=== PATIENT | female | born 1990 | race Caucasian/White ===

== ENCOUNTER 2022-12-08 17:02 | Inpatient (IN) | payer OTHER, SELFPAY ==
[2022-12-08 17:06] VITALS: BP 138/91; PULSE 121; RESP 18; TEMP 37.9; O2SAT 99; BMI 40.6
--- NOTE | 2022-12-08 17:17 | ED.SKABFB ---
HPI - Skin/Abscess/Foreign Bdy General Time Seen by Provider: 17:17 Date Seen: 12/08/22 Chief complaint: Skin/Abscess/Foreign Body Stated complaint: Rash w Fever Time Seen by Provider: 12/08/22 17:17 Source: patient, RN notes reviewed and old records reviewed Mode of arrival: ambulatory Limitations: no limitations History of Present Illness HPI narrative: Patient is a very pleasant 32-year-old female with past history of MRSA and recent treatment for cellulitis with doxycycline and Keflex who comes to the emergency room for worsening symptoms. Patient noted the onset of feeling ill with body aches and chills on WednesdayDecember 06. She thought she was coming down with a virus. That evening she noticed some redness on her lower extremity. Mainly in the anterior and medial calf area. She had noticed that she had an opening on her right lateral heel from a skin crack. It was initially tender. She was seen in the emergency room at which time she received an ultrasound that was negative for DVT, received dose of Rocephin and was placed on oral doxycycline and Keflex. She has not noted any improvement. In fact she has now been experiencing fevers up to 102? in association with continued chills. She now notes that the redness has extended onto her right thigh. She is nauseated without any known vomiting. She has not had any diarrhea. She denies difficulty breathing. Related Data Home Medications Medication Instructions Recorded Confirmed Ozempic 12/08/22 hydrochlorathiazide 12/08/22 Allergies Allergy/AdvReac Type Severity Reaction Status Date / Time Sulfa (Sulfonamide Allergy Intermediate Rash Verified 12/08/22 17:10 Antibiotics) Review of Systems Status of ROS: Reports: 10 or more systems reviewed and unremarkable except as noted in History and below Const: Reports: fever, chills and fatigue Eyes: Denies: change in vision ENMT: Denies: throat pain, neck pain or difficulty swallowing Cardio: Denies: chest pain or shortness of breath with exertion Resp: Denies: shortness of breath or cough GI: Reports: nausea; Denies: abdominal pain, vomiting, diarrhea or difficulty swallowing : Denies: painful urination or urinary frequency Musculo: Denies: back pain or neck pain Integ/Breast: Reports: rash, redness and skin pain Neuro: Denies: headache, numbness in extremities or weakness in extremities Endo: Reports: fatigue; Denies: excessive urination PFSH PFS Social History Smoking Status: Never smoker Do you use any of these nicotine containing products: None How often do you have a drink containing alcohol: 2-3 times a week How many standard drinks containing alcohol do you have on a typical day: 1 or 2 AUDIT-C Alcohol total score: 3 Non-prescribed substance use: denies use service: No Exam Narrative: Exam Narrative: Nursing notes reviewed. Patient is alert and oriented. She is nontoxic in appearance. Eyes are clear. Mucous membranes are moist. Neck is supple without lymphadenopathy. Heart with a rapid rate but normal rhythm. Lungs are clear bilaterally. Abdomen soft nontender. Examination of the lower extremity shows multiple areas of erythema macular with warmth to the touch. This is on her entire leg extending into her groin. The groin is tender but I do not palpate extensive lymphadenopathy. The lateral aspect of her right heel she has a 1 cm crack through the callused tissue. This is not tender to the touch nor is there any drainage here. Negative Homans sign. Const: Vital Signs, click to edit/add: Vital Signs - 24 hr 12/08/22 17:06 Temperature 100.2 F H Pulse Rate [Pulse Oximeter] 121 H Respiratory Rate 18 Blood Pressure [Ri ght Upper Arm] 138/91 H Pulse Oximetry 99 Oxygen Delivery Me thod Room Air Documenting provider has reviewed patient's vital signs: yes Course Course Hospital Course: Patient will have IV placed is clearly this is cellulitic extension. Will start vancomycin and Zosyn IV blood cultures will be accomplished as well as blood draw to include CBC, lactate, basic, CRP. Reevaluation(s) Reevaluation #1: Discussed with patient that her lactate and white count are normal but she has an elevation of CRP. She is requesting pain medication and nausea medicine. She has not had any vomiting. Will give her Toradol 15 mg and Zofran 4 mg via IV. Vital Signs Vital signs: Initial Vital Signs Temperature 100.2 F H 12/08/22 17:06 Temperature Source Temporal Artery Scan 12/08/22 17:06 Pulse Rate 121 H 12/08/22 17:06 Respiratory Rate 18 12/08/22 17:06 Blood Pressure 138/91 H 12/08/22 17:06 Blood Pressure Mean 106 12/08/22 17:06 Blood Pressure Position Supine 12/08/22 17:06 Pulse Oximetry 99 12/08/22 17:06 Oxygen Delivery Method 12/08/22 17:06 Vital Signs Temperature 100.2 F H 12/08/22 17:06 Pulse Rate 121 H 12/08/22 17:06 Respiratory Rate 18 12/08/22 17:06 Blood Pressure 138/91 H 12/08/22 17:06 Pulse Oximetry 99 12/08/22 17:06 Oxygen Delivery Method 12/08/22 17:06 Temperature 100.2 F H 12/08/22 17:06 Pulse Rate 121 H 12/08/22 17:06 Respiratory Rate 18 12/08/22 17:06 Blood Pressure 138/91 H 12/08/22 17:06 Pulse Oximetry 99 12/08/22 17:06 Oxygen Delivery Method 12/08/22 17:06 MDM - Skin/Abscess/Foreign Bdy MDM Narrative Medical decision making narrative: 1. Cellulitis-failure of outpatient antibiotics with extension infection into right leg and groin. Zosyn 3.375 g IV, vancomycin 2 g IV given in the ED. Did recheck lower extremity Doppler to ensure no evidence of underlying DVT and this was negative. White count and lactate normal. No evidence of sepsis at this time. 2. Disposition -admit under the care of Dr. Mccallum. Medical Records Attestation: I reviewed the patient's medical records. Lab Data Attestation: I reviewed the patient's lab results. Labs: Lab Results 12/08/22 12/08/22 12/08/22 Range/Units 17:40 17:40 17:40 WBC 8.71 (4.50-11.00) K/uL RBC 3.93 L (4.00-5.20) m/uL Hgb 12.4 (12.0-16.0) gm/dL Hct 36.1 (33.0-51.0) % MCV 92 (80-100) fL MCH 32 (26-34) pg MCHC 34 (32-36) gm/dL RDW Coeff of Duyen 12.9 (11.5-15.5) % Plt Count 175 (140-440) K/uL Neut % (Auto) 76.4 H (42.0-72.0) % Lymph % (Auto) 15.7 L (20-44) % [place] % (Auto) 7.0 (0.0-11.0) % Eos % (Auto) 0.5 (0.0-7.0) % Baso % (Auto) 0.2 (0.0-3.0) % Neut # (Auto) 6.70 (1.7-7.0) K/uL Lymph # (Auto) 1.40 (0.90-2.90) K/uL [place] # (Auto) 0.60 (0.00-0.90) K/UL Eos # (Auto) 0.04 (0.00-0.50) K/uL Baso # (Auto) 0.02 (0.00-0.30) K/uL Sodium 136 (135-149) mmol/L Potassium 3.5 L (3.6-5.1) mmol/L Chloride 109 (96-114) mmol/L Carbon Dioxide 20 (20-32) mmol/L BUN 8 (5-24) mg/dL Creatinine 0.7 (0.5-1.5) mg/dL Estimated Creat Clear 87.06 Estimated GFR 118 ml/min Glucose 94 (60-115) mg/dL Lactate 0.6 (0.5-1.9) mmol/L Calcium 8.3 L (8.4-10.6) mg/dL C-Reactive Protein 20.0 H (0.5-1.0) mg/dL Imaging Data Venous US: Attestation: I have reviewed the pertinent imaging results. Radiologist's impression: Ultrasound of the venous drainage of the right lower extremity shows no evidence of deep venous thrombosis. There is normal antegrade flow from the posterior tibial and popliteal veins superiorly through the common femoral vein. There is normal augmentation and compressibility of these veins. The left common femoral vein is widely patent. IMPRESSION: No evidence of right lower extremity deep venous thrombosis. Discharge Plan Discharge Prescriptions: No Action Ozempic hydrochlorathiazide
--- NOTE | 2022-12-08 17:26 | CRLHL7_ITS ---
For Patients: As a result of the Century Cures Act, medical imaging exams and procedure reports are released immediately into your electronic medical record. You may view this report before your referring provider. If you have questions, please contact your health care provider. INDICATION: Right lower extremity pain and swelling COMPARISON: None available. FINDINGS: Ultrasound of the venous drainage of the right lower extremity shows no evidence of deep venous thrombosis. There is normal antegrade flow from the posterior tibial and popliteal veins superiorly through the common femoral vein. There is normal augmentation and compressibility of these veins. The left common femoral vein is widely patent. IMPRESSION: No evidence of right lower extremity deep venous thrombosis. Dictated by Fredrick Weir MD @ 12/08/2022 6:38:46 PM (Electronically Signed)
[2022-12-08] MEDS: 0.9 % SODIUM CHLORIDE 1000 ml 1,000 ML IV ×2 (17:45→22:41)
[2022-12-08] MEDS: PIPERACILLIN/TAZOBACTAM 3.375 GM in 0.9 % SODIUM CHLORIDE Mini-bag 100 ML IVPB ×2 (17:46→23:56)
[2022-12-08 18:00] LABS: Lactate* 0.6 mmol/L (0.5-1.9)
[2022-12-08 18:02] LABS: Basophils Absolute Auto 0.02 K/uL (0.00-0.30); Basophils Percent Auto 0.2 % (0.0-3.0); Eosinophils Absolute Auto 0.04 K/uL (0.00-0.50); Eosinophils Percent Auto 0.5 % (0.0-7.0); Hematocrit 36.1 % (33.0-51.0); Hemoglobin* 12.4 gm/dL (12.0-16.0); Immature Granulocytes Abs Auto 0.02 K/uL (0.00-0.30); Immature Granulocytes Pct Auto 0.2 %; Lymphocytes Percent Auto 15.7 % (20-44); Mean Corpuscular HGB Conc 34 gm/dL (32-36); Mean Corpuscular Hemoglobin 32 pg (26-34); Mean Corpuscular Volume 92 fL (80-100); Neutrophils Percent Auto 76.4 % (42.0-72.0); Platelet Count* 175 K/uL (140-440); RDW Coefficient of Variation % 12.9 % (11.5-15.5); Red Blood Count 3.93 m/uL (4.00-5.20); White Blood Count* 8.71 K/uL (4.50-11.00)
[2022-12-08 18:05] LABS: Slide Review Reflex No
[2022-12-08 18:17] LABS: Chloride* 109 mmol/L (96-114); Sodium* 136 mmol/L (135-149)
[2022-12-08 18:18] LABS: Potassium* 3.5 mmol/L (3.6-5.1)
[2022-12-08 18:20] LABS: Creatinine* 0.7 mg/dL (0.5-1.5); Est. Creatinine Clearance* 87.06; Estimated Glomerular Filt Rate 118 ml/min
[2022-12-08 18:21] LABS: Blood Urea Nitrogen* 8 mg/dL (5-24); Calcium* 8.3 mg/dL (8.4-10.6); Carbon Dioxide* 20 mmol/L (20-32); Glucose* 94 mg/dL (60-115)
[2022-12-08] MEDS: KETOROLAC 15 MG/ML inj IVP (19:07)
[2022-12-08] MEDS: ONDANSETRON 2 MG/ML inj 4 MG IVP (19:07)
[2022-12-08 19:09] VITALS: BP 124/77; TEMP 37.4
--- NOTE | 2022-12-08 19:49 | W.PC.EDHO ---
Primary Language: Preferred Language: Orientation Status: [x] Alert & Oriented [] Slight Confusion [] Known Dx Dementia Transfers By: [x] Assist of 1 [] Assist of 2 [] Lift Active Medications Discontinued Medications Generic Name Dose Route Start Last Admin Trade Name James PRN Reason Stop Dose Admin Sodium Chloride 1,000 mls @ 1,000 mls/hr 12/08/22 17:24 12/08/22 19:21 0.9 % Sodium Chloride 1000 Ml IV 12/08/22 18:23 Infused .Q1H DAISY Infusion Piperacillin Sod/Tazobactam 100 mls @ 200 mls/hr 12/08/22 17:23 12/08/22 18:35 Sod 3.375 gm/ Sodium Chloride IVPB 12/08/22 17:24 Infused ONCE ONE Infusion Vancomycin HCl 2,000 mg/ 520 mls @ 260 mls/hr 12/08/22 17:23 12/08/22 18:34 Sodium Chloride IVPB 12/08/22 17:24 260 mls/hr ONCE ONE Administration Protocol Ketorolac Tromethamine 15 mg 12/08/22 18:52 12/08/22 19:07 Ketorolac 15 Mg/Ml Inj IVP 12/08/22 18:53 15 mg ONCE ONE Administration Ondansetron HCl 4 mg 12/08/22 18:52 12/08/22 19:07 Ondansetron 2 Mg/Ml Inj IVP 12/08/22 18:53 4 mg ONCE ONE Administration Description of Symptoms ED Triage Present Problem wednesday night went to [facility] with malaise, weak, Description pain R groin down leg, diagnosed with cellulitis. had rocephin iv, dc'd on doxycycline and keflex. today redness on leg increasing and fever of 102. Female History Hx Last Menstrual Period 2.5 weeks ago Patient No Pain Pain Description [Right Leg] Burning Pain Intensity [Right Leg] 8 Pain Intensity [Right Leg] 7 Pain Intensity 5 Pain Intensity 6 Pain Intensity 8 Pain Scale Used [Right Leg] Numeric (1 - 10) Pain Scale Used Numeric (1 - 10) Pain Scale Used Numeric (1 - 10) Pain Scale Used Numeric (1 - 10) IV Insertion/Site Date of IV Line Insertion [ 12/08/22 Left Antecubital] Oxygen Administration Pulse Oximetry 99 Oxygen Delivery Method Room Air
[2022-12-08 20:08] LABS: PCR FLU A Negative PCR FLU A (Negative); PCR FLU B Negative PCR FLU B (Negative); PCR RSV Negative PCR RSV (Negative)
[2022-12-08 20:39] LABS: SARS PCR* Negative SARS-CoV-2 (Negative)
--- NOTE | 2022-12-08 21:00 | PM.IMHP1 ---
Hospitalist- H&P: HPI History of Present Illness Date Seen: 12/08/22 Chief complaint: Rash w Fever Narrative: Stephanie Gagnon is a 32 year old female who presented to the emergency room this evening for worsening right lower extremity cellulitis. She notes feeling flu-like on Wednesday (2 days ago), followed by a rash on R choudhury. She was seen at [facility], treated with IV Rocephin, sent home on oral Doxycycline and Keflex. Symptoms continued to worsen, and in the past 24 hours, erythema has continued to spread caudally. Her right lower extremity has also felt more uncomfortable and tight. She has also had fevers at home (up to 102) with associated chills. She has had associated nausea, no vomiting or diarrhea. No sick contacts at home. No recent travel. ER course and findings: - white blood count 8.7, lactate within normal limits, CRP 20 - no abnormalities on right lower extremity ultrasound - temperature of 100.2, tachycardic on arrival - given IV vancomycin and Zosyn Given patient's worsening illness and failure of outpatient antibiotics, she is admitted to the hospital for further management. Stephanie is seen on the floor, she provides her own medical history. Past medical history updated below; patient is generally healthy. PCP is Dr. Rubina Meneses at [facility] clinic in [place]. 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 Lies in [place] with and three children (ages 1, 4, and 7). Review of Systems Narrative: - no recent travel - LMP late October, negative UPT 2 days ago - no dysuria, no abdominal pain PFSH PFSH Medical History (Updated 12/08/22 @ 21:58 by Bertha Mccallum MD) Essential hypertension Surgical History (Updated 12/08/22 @ 21:45 by Bertha Mccallum MD) History of Family History (Updated 12/08/22 @ 21:45 by Bertha Mccallum MD) Father Diabetes Leukemia Social History (Updated 12/08/22 @ 21:44 by Bertha Mccallum MD) Narrative: Lives with and 3 children in [place]. 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 Nonsmoker, social wine. Nabil would be medical decision maker if needed. Full code. Highest level of school completed/degree received: Bachelor's degree Smoking Status: Never smoker Do you use any of these nicotine containing products: None Second hand tobacco smoke exposure: No How often do you have a drink containing alcohol: 2-3 times a week Alcohol type: wine How many standard drinks containing alcohol do you have on a typical day: 1 or 2 AUDIT-C Alcohol total score: 3 Non-prescribed substance use: denies use Caffeine: Yes service: No Meds Home Medications and Allergies Home Medications Medication Instructions Recorded Confirmed Type hydrochlorothiazide 25 mg tablet 25 mg PO DAILY 12/08/22 12/08/22 History semaglutide 0.25 mg or 0.5 mg (2 0.5 mg subcut QWEEK 12/08/22 12/08/22 History mg/1.5 mL) subcutaneous pen injector (Ozempic) Allergies Allergy/AdvReac Type Severity Reaction Status Date / Time Sulfa (Sulfonamide Allergy Intermediate Rash Verified 12/08/22 17:10 Antibiotics) Exam Narrative: Exam Narrative: GEN: Alert and oriented, sitting comfortably in bed and answering questions appropriately HEENT: EOMIs bilaterally, no scleral icterus CV: RRR (heart rate in the 90s during my exam), No concerning murmurs, rubs, or gallops R: LCTA bilaterally without concerning wheezing, air movement adequate Abdomen: Soft, nontender, no masses Back: Normal contours, no concerning skin lesions Ext: Normal pulses at dorsalis pedis sites bilaterally. Nonpitting edema of right lower extremity, areas of erythema are warm to the touch Skin: Streaking, blanchable erythema noted on right lower extremity, both anteriorly and posteriorly, tracking caudally. No vesicular lesions. No obvious source of cellulitis; small crack in right heel that does not have surrounding erythema, there is also no induration or fluctuance of this area and no tenderness to palpation Neuro: No focal deficits, no resting tremor Psych: Appropriate Const: Vital Signs, click to edit/add: Vital Signs - 24 hr 12/08/22 17:06 12/08/22 19:09 Temperature 100.2 F H 99.3 F Pulse Rate [Pulse Oximeter] 121 H Respiratory Rate 18 Blood Pressure [Ri ght Upper Arm] 138/91 H 124/77 Pulse Oximetry 99 Oxygen Delivery Me thod Room Air Hospitalist - H&P: Result Labs Labs: Short CBC 12/08/22 Range/Units 17:40 WBC 8.71 (4.50-11.00) K/uL Hgb 12.4 (12.0-16.0) gm/dL Hct 36.1 (33.0-51.0) % Plt Count 175 (140-440) K/uL BMP 12/08/22 17:40 Sodium 136 Potassium 3.5 L Chloride 109 Carbon Dioxide 20 BUN 8 Creatinine 0.7 Glucose 94 Calcium 8.3 L Assessment and Plan Assessment and plan (1) Cellulitis: Problem comment: - RLE; failed outpatient management with doxycycline and Keflex - presented with fever and worsening symptoms - Zosyn and vancomycin initiated in ED (12/08), will continue these - negative ultrasound for DVT on 12/08 - pain management with Toradol, oxycodone, Tylenol - fever management with Tylenol Status: Acute (2) Essential hypertension: Problem comment: - on hydrochlorothiazide as an outpatient - holding on admission given severe illness Status: Acute Plan - per above - follow inflammatory markers - full code
[2022-12-08 21:17] VITALS: BP 109/78; PULSE 102; RESP 16; RESP 18; TEMP 37.8; O2SAT 97; O2SAT 99; BMI 42.3
[2022-12-08] MEDS: ACETAMINOPHEN 500 MG TABLET 1000 MG PO (22:41)
[2022-12-08 23:00] VITALS: BP 137/90; PULSE 102; PULSE 107; RESP 18; TEMP 37.3; O2SAT 99
[2022-12-09] VITALS (8 sets, daily range): BP systolic 111–147; BP diastolic 78–101; PULSE 80–98; RESP 16–18; TEMP 36.8–37.2; O2SAT 97–100
[2022-12-09] MEDS: PIPERACILLIN/TAZOBACTAM 3.375 GM in 0.9 % SODIUM CHLORIDE Mini-bag 100 ML IVPB ×4 (05:30→23:30)
[2022-12-09] MEDS: OXYCODONE 5 MG TABLET PO ×4 (05:33→20:37)
--- NOTE | 2022-12-09 06:10 | PC.NURSE ---
VSS on RA. Patient is alert and oriented x4, able to make needs known to staff. Independent, pain managed with oxycodone 5 mg. Iv antibiotics infused x2 this shift.
[2022-12-09 07:09] LABS: Lactate* 0.5 mmol/L (0.5-1.9)
[2022-12-09 07:50] LABS: Basophils Absolute Auto 0.02 K/uL (0.00-0.30); Basophils Percent Auto 0.3 % (0.0-3.0); Eosinophils Absolute Auto 0.05 K/uL (0.00-0.50); Eosinophils Percent Auto 0.7 % (0.0-7.0); Hematocrit 34.7 % (33.0-51.0); Hemoglobin* 11.6 gm/dL (12.0-16.0); Immature Granulocytes Abs Auto 0.02 K/uL (0.00-0.30); Immature Granulocytes Pct Auto 0.3 %; Lymphocytes Percent Auto 13.7 % (20-44); Mean Corpuscular HGB Conc 33 gm/dL (32-36); Mean Corpuscular Hemoglobin 31 pg (26-34); Mean Corpuscular Volume 94 fL (80-100); Monocytes Percent Auto 10.7 % (0.0-11.0); Neutrophils Percent Auto 74.3 % (42.0-72.0); Platelet Count* 151 K/uL (140-440); RDW Coefficient of Variation % 13.1 % (11.5-15.5); Red Blood Count 3.69 m/uL (4.00-5.20); White Blood Count* 6.85 K/uL (4.50-11.00)
[2022-12-09 07:52] LABS: Slide Review Reflex No
[2022-12-09 07:55] LABS: Chloride* 112 mmol/L (96-114); Potassium* 3.6 mmol/L (3.6-5.1); Sodium* 139 mmol/L (135-149)
[2022-12-09 07:58] LABS: Creatinine* 0.8 mg/dL (0.5-1.5); Est. Creatinine Clearance* 76.18; Estimated Glomerular Filt Rate 100 ml/min
[2022-12-09 07:59] LABS: Blood Urea Nitrogen* 8 mg/dL (5-24); Calcium* 7.9 mg/dL (8.4-10.6); Carbon Dioxide* 23 mmol/L (20-32); Glucose* 99 mg/dL (60-115)
[2022-12-09 08:14] LABS: C Reactive Protein* 18.8 mg/dL (0.5-1.0)
[2022-12-09] MEDS: SODIUM CHLORIDE 0.9 % (FLUSH) 10 ML SYRINGE 5 ML IVF ×2 (09:51→20:22)
--- NOTE | 2022-12-09 09:51 | CRLHL7_ITS ---
For Patients: As a result of the Century Cures Act, medical imaging exams and procedure reports are released immediately into your electronic medical record. You may view this report before your referring provider. If you have questions, please contact your health care provider. INDICATION: Calf cellulitis. Assess for abscess. TECHNIQUE: 100 mL Isovue-370 IV contrast. FINDINGS: Moderately dense edema attenuation in the subcutaneous adipose anterior and medial mid to distal calf. No organized fluid. No muscle inflammation or edema. No cortical nodular abnormality of tibia or fibula. No soft tissue air. Some skin thickening in the anterior medial mid to distal calf. IMPRESSION: No abscess or deep soft tissue infection. Cellulitis. Please note that all CT scans at this facility use dose modulation, iterative reconstruction, and/or weight-based dosing when appropriate to reduce radiation dose to as low as reasonably achievable. Dictated by Ritchie Benito MD @ 12/09/2022 11:39:33 AM (Electronically Signed)
--- NOTE | 2022-12-09 09:54 | PM.IMPN1 ---
Progress Note: A&P Assessment and plan (1) Cellulitis: Problem details: - RLE; failed outpatient management with doxycycline and Keflex (presented with fever, tachycardia, hypotension) - Zosyn and vancomycin initiated in ED (12/08), will continue these - pain management with Toradol, oxycodone, Tylenol - negative ultrasound for DVT on 12/08 - CT obtained 12/09 with formal radiology read below FINDINGS: Moderately dense edema attenuation in the subcutaneous adipose anterior and medial mid to distal calf. No organized fluid. No muscle inflammation or edema. No cortical nodular abnormality of tibia or fibula. No soft tissue air. Some skin thickening in the anterior medial mid to distal calf. IMPRESSION: No abscess or deep soft tissue infection. Cellulitis Status: Acute (2) Essential hypertension: Problem details: - on hydrochlorothiazide as an outpatient, holding at this time given hypotension on admission Status: Acute (3) Sepsis: Problem details: - tachycardia, hypotension, fever in the setting of cellulitis; all improved on hospital day #1 - blood cultures currently NGTD Status: Acute Plan - continue antibiotics and pain management - start ambulating today - home with and children when medically stable Subjective Date Seen: 12/09/22 Interval history: BP improved overnight after IVFs. Tmax 100.2 last night. VS normalized this morning. Continues to have pain, notes it is worse than on admission with some induration of posterior RLE. No CP, no abdominal pain, no dyspnea. Mild headache this morning (queries lack of caffeine as source). Exam Narrative: Exam Narrative: GEN: Alert and oriented, sitting comfortably in bed and answering questions appropriately HEENT: EOMIs bilaterally, no scleral icterus CV: RRR, No concerning murmurs, rubs, or gallops R: LCTA bilaterally without concerning wheezing, air movement adequate Ext: Nonpitting edema of right lower extremity. Skin over posterior rate ankle is now indurated, not fluctuant. + ttp Skin: Serpiginous erythema persists over right lower extremity, erythema has improved caudally Neuro: Normal peripheral pulses and capillary refill bilateral lower extremities Psych: Appropriate Const: Vital Signs, click to edit/add: Vital Signs - 24 hr 12/08/22 17:06 12/08/22 19:09 12/08/22 21:17 Temperature 100.2 F H 99.3 F 100.1 F H Pulse Rate [Left P ulse Oximeter] 102 H Pulse Rate [Pulse Oximeter] 121 H Respiratory Rate 18 16 Blood Pressure [Ri ght Arm] 109/78 Blood Pressure [Ri ght Upper Arm] 138/91 H 124/77 Pulse Oximetry 99 97 Oxygen Delivery Tn thod Room Air Room Air 12/08/22 21:17 12/08/22 23:00 12/08/22 23:00 Temperature Pulse Rate [Left P ulse Oximeter] 102 H Pulse Rate [Pulse Oximeter] Respiratory Rate 18 18 Blood Pressure [Ri ght Arm] Blood Pressure [Ri ght Upper Arm] Pulse Oximetry 99 99 Oxygen Delivery Tn thod Room Air Room Air 12/08/22 23:00 12/09/22 03:00 12/09/22 07:50 Temperature 99.2 F 98.4 F Pulse Rate [Left P ulse Oximeter] 107 H 94 91 Pulse Rate [Pulse Oximeter] Respiratory Rate 18 18 16 Blood Pressure [Ri ght Arm] 137/90 H 111/78 Blood Pressure [Ri ght Upper Arm] Pulse Oximetry 99 98 Oxygen Delivery Tn thod Room Air Room Air 12/09/22 07:00 12/09/22 07:00 Temperature 98.9 F Pulse Rate [Left P ulse Oximeter] 91 Pulse Rate [Pulse Oximeter] Respiratory Rate 18 16 Blood Pressure [Ri ght Arm] 134/89 Blood Pressure [Ri ght Upper Arm] Pulse Oximetry 97 97 Oxygen Delivery Tn thod Room Air Room Air Labs Labs: Laboratory Results - last 24 hr 12/08/22 12/08/22 12/08/22 17:40 17:40 17:40 WBC 8.71 RBC 3.93 L Hgb 12.4 Hct 36.1 MCV 92 MCH 32 MCHC 34 RDW Coeff of Duyen 12.9 Plt Count 175 Neut % (Auto) 76.4 H Lymph % (Auto) 15.[address] [place] % (Auto) 7.0 Eos % (Auto) 0.5 Baso % (Auto) 0.2 Neut # (Auto) 6.70 Lymph # (Auto) 1.40 [place] # (Auto) 0.60 Eos # (Auto) 0.04 Baso # (Auto) 0.02 Sodium 136 Potassium 3.5 L Chloride 109 Carbon Dioxide 20 BUN 8 Creatinine 0.7 Estimated Creat Clear 87.06 Estimated GFR 118 Glucose 94 Lactate 0.6 Calcium 8.3 L C-Reactive Protein 20.0 H SARS-CoV-2 (PCR) Influenza Type A (PCR) Influenza Type B (PCR) RSV (PCR) 12/08/22 12/09/22 12/09/22 19:00 06:49 06:49 WBC 6.85 RBC 3.69 L Hgb 11.6 L Hct 34.7 MCV 94 MCH 31 MCHC 33 RDW Coeff of Duyen 13.1 Plt Count 151 Neut % (Auto) 74.3 H Lymph % (Auto) 13.[address] [place] % (Auto) 10.7 Eos % (Auto) 0.7 Baso % (Auto) 0.3 Neut # (Auto) 5.10 Lymph # (Auto) 0.90 [place] # (Auto) 0.70 Eos # (Auto) 0.05 Baso # (Auto) 0.02 Sodium 139 Potassium 3.6 Chloride 112 Carbon Dioxide 23 BUN 8 Creatinine 0.8 Estimated Creat Clear 76.18 Estimated GFR 100 Glucose 99 Lactate Calcium 7.9 L C-Reactive Protein 18.8 H SARS-CoV-2 (PCR) Negative SARS-CoV-2 Influenza Type A (PCR) Negative PCR FLU A Influenza Type B (PCR) Negative PCR FLU B RSV (PCR) Negative PCR RSV 12/09/22 06:49 WBC RBC Hgb Hct MCV MCH MCHC RDW Coeff of Duyen Plt Count Neut % (Auto) Lymph % (Auto) [place] % (Auto) Eos % (Auto) Baso % (Auto) Neut # (Auto) Lymph # (Auto) [place] # (Auto) Eos # (Auto) Baso # (Auto) Sodium Potassium Chloride Carbon Dioxide BUN Creatinine Estimated Creat Clear Estimated GFR Glucose Lactate 0.5 Calcium C-Reactive Protein SARS-CoV-2 (PCR) Influenza Type A (PCR) Influenza Type B (PCR) RSV (PCR)
[2022-12-09 10:46] LABS: HCG Qualitative* Negative (Negative)
[2022-12-09] MEDS: KETOROLAC 30 MG/ML inj 15 MG IVP (11:40)
--- NOTE | 2022-12-09 14:46 | PC.NURSE ---
End of shift. Patient is alert and oriented x4, able to make needs known to staff. Independent, pain managed with oxycodone 5 mg. Iv antibiotics infused x2 this shift.
--- NOTE | 2022-12-09 14:47 | PC.NURSE ---
End of shift. Pt is alert and oriented x4, pain in the right lower leg. 0-7/10. she is getting po and IV pain meds./ she is eating, drinking and voiding with no problems. she is up ab delmis. she had a CT today. she had a shower today. she is using call light. Iv antibiotics given.
[2022-12-09] MEDS: ACETAMINOPHEN 500 MG TABLET 1000 MG PO (15:19)
--- NOTE | 2022-12-09 19:34 | PC.NURSE ---
Shift [id number]- Patient is pleasant and cooperative. Requests pain medication, receives and she states relief. Redness/pinkness is well receded from outline, though area on posterior medial lower leg are blistered. She is up ad delmis.
[2022-12-09] MEDS: ENOXAPARIN 40 MG/0.4 ML INJ SUBCUT (20:37)
[2022-12-09] MEDS: FLUCONAZOLE 100 MG TABLET 200 MG PO (21:40)
[2022-12-09] MEDS: hydrOXYzine pamoate 25 MG CAPSULE PO (21:40)
[2022-12-10] VITALS (7 sets, daily range): BP systolic 128–137; BP diastolic 77–92; PULSE 91–103; RESP 16–18; TEMP 36.9–37.5; O2SAT 96–98
[2022-12-10] MEDS: OXYCODONE 5 MG TABLET PO ×7 (00:36→22:48)
[2022-12-10] MEDS: 0.9 % SODIUM CHLORIDE 250 ml IV ×2 (00:37→19:42)
[2022-12-10] MEDS: PIPERACILLIN/TAZOBACTAM 3.375 GM in 0.9 % SODIUM CHLORIDE Mini-bag 100 ML IVPB ×4 (05:07→22:42)
--- NOTE | 2022-12-10 05:50 | PC.NURSE ---
[id number]: Patient pleasant and cooperative with cares. PRN Oxycodone administered for pain relief. Independent in room. Patient noted increased redness and pain on R. upper thigh. aware. Mix Chemist outlined new area. Reddened area on R. calf within the previously drawn lines. Denies N/V. Afebrile.
[2022-12-10 06:24] LABS: Lactate* 0.5 mmol/L (0.5-1.9)
[2022-12-10 06:27] LABS: Basophils Absolute Auto 0.01 K/uL (0.00-0.30); Basophils Percent Auto 0.2 % (0.0-3.0); Eosinophils Absolute Auto 0.16 K/uL (0.00-0.50); Eosinophils Percent Auto 2.6 % (0.0-7.0); Hematocrit 33.3 % (33.0-51.0); Hemoglobin* 11.2 gm/dL (12.0-16.0); Immature Granulocytes Abs Auto 0.02 K/uL (0.00-0.30); Immature Granulocytes Pct Auto 0.3 %; Lymphocytes Absolute Auto 1.49 K/uL (0.90-2.90); Lymphocytes Percent Auto 24.3 % (20-44); Mean Corpuscular HGB Conc 34 gm/dL (32-36); Mean Corpuscular Hemoglobin 32 pg (26-34); Mean Corpuscular Volume 94 fL (80-100); Monocytes Percent Auto 10.6 % (0.0-11.0); Neutrophils Absolute Auto 3.81 K/uL (1.7-7.0); Platelet Count* 179 K/uL (140-440); RDW Coefficient of Variation % 13.3 % (11.5-15.5); Red Blood Count 3.53 m/uL (4.00-5.20); White Blood Count* 6.14 K/uL (4.50-11.00)
[2022-12-10 06:35] LABS: Slide Review Reflex No
[2022-12-10 06:47] LABS: Albumin* 3.1 g/dL (3.3-5.0); Chloride* 110 mmol/L (96-114)
[2022-12-10 06:48] LABS: Potassium* 3.7 mmol/L (3.6-5.1); Sodium* 138 mmol/L (135-149)
[2022-12-10 06:50] LABS: Creatinine* 0.9 mg/dL (0.5-1.5); Est. Creatinine Clearance* 67.72; Estimated Glomerular Filt Rate 87 ml/min
[2022-12-10 06:51] LABS: Alanine Aminotransferase* 15 U/L (4-35); Alkaline Phosphatase* 53 U/L (40-150); Aspartate Amino Transferase* 18 U/L (12-35); Bilirubin Total* 0.4 mg/dL (0.1-1.5); Blood Urea Nitrogen* 9 mg/dL (5-24); Carbon Dioxide* 25 mmol/L (20-32); Glucose* 94 mg/dL (60-115); Total Protein* 6.1 g/dL (6.0-8.3)
[2022-12-10 07:12] LABS: C Reactive Protein* 17.1 mg/dL (0.5-1.0)
[2022-12-10] MEDS: SODIUM CHLORIDE 0.9 % (FLUSH) 10 ML SYRINGE 5 ML IVF ×2 (11:05→19:43)
--- NOTE | 2022-12-10 14:28 | PC.NURSE ---
End of shift. ? Pt is alert and oriented x4,?she has been very pleasant. pain in the right lower leg.? 0-510.? she is getting po pain meds. ? she is eating, drinking and voiding with no problems. ? she is up ab delmis and goijg to the [place] on her own, she was able to visit with her family today. SL is patent. ? she is using call light.? Iv antibiotics given. ?redness is improved.
--- NOTE | 2022-12-10 15:18 | P.IMPN_ITS ---
Progress Note: A&P Assessment and plan (1) Cellulitis: Problem details: - RLE; failed outpatient management with doxycycline and Keflex (presented with fever, tachycardia, hypotension) - Zosyn and vancomycin initiated in ED (12/08), will continue these - pain management with Toradol, oxycodone, Tylenol - negative ultrasound for DVT on 12/08 - CT obtained 12/09 with formal radiology read below FINDINGS: Moderately dense edema attenuation in the subcutaneous adipose anterior and medial mid to distal calf. No organized fluid. No muscle inflammation or edema. No cortical nodular abnormality of tibia or fibula. No soft tissue air. Some skin thickening in the anterior medial mid to distal calf. IMPRESSION: No abscess or deep soft tissue infection. Cellulitis - apply Vanicream to the skin of the right lower extremity and then cover with appropriate Tubigrip single layer - she tolerates this well. Recommended that when she is not ambulating that she keep the right lower extremity elevated. Status: Acute (2) Essential hypertension: Problem details: - on hydrochlorothiazide as an outpatient, holding at this time given hypotension on admission Status: Acute (3) Sepsis: Problem details: - tachycardia, hypotension, fever in the setting of cellulitis; all improved on hospital day #1 - blood cultures currently NGTD Status: Acute Plan 1. Reviewed impression with patient. Most likely the seeming worsening of the cellulitis is in fact the inflammatory response when the leg is in a dependent position. Clinically and biochemically patient is making slow but steady improvement. 2. Continue with current regimen. 3. Patient agreeable to above stated plans and recommendations. Time Spent With Patient Total time spent: 40 minutes Subjective Time Seen by Provider: 10:00 Date Seen: 12/10/22 Interval history: Hospital day 2. BP improved. Tmax 99 ? F last night. VS normalized this morning. Continues to have pain, but is actually starting to improve somewhat. No CP, no abdominal pain, no dyspnea. Mild headache this morning (queries lack of caffeine as source). Concerned that the redness and swelling was much worse last night although this morning it has started to rescind once again. Exam Narrative: Exam Narrative: Appears comfortable, no acute distress. Alert and oriented to self, place, time, situation. Friendly, articulate, cooperative. Mood and affect are congruent. Lungs are clear to auscultation. Heart tones with regular rhythm. Abdomen is benign. Left lower extremity benign. Right lower extremity with cellulitis possibly rescinding compared to last night when I had extended up to thigh once again. Still has bullae in the dependent right lower extremity, anteriorly and posteriorly, no drainage. Right calf measures 46 cm in circumference. Const: Vital Signs, click to edit/add: Vital Signs - 24 hr 12/09/22 20:17 12/09/22 23:35 12/09/22 23:00 Temperature 99.0 F 98.9 F Pulse Rate [Left P ulse Oximeter] 87 98 Respiratory Rate 18 18 18 Blood Pressure [Ri ght Arm] 147/101 H 124/84 Pulse Oximetry 100 97 97 Oxygen Delivery Me thod Room Air Room Air Room Air 12/10/22 05:00 12/10/22 08:05 12/10/22 07:25 Temperature 98.7 F Pulse Rate [Left P ulse Oximeter] 94 97 Respiratory Rate 16 16 16 Blood Pressure [Ri ght Arm] 132/85 Pulse Oximetry 96 96 Oxygen Delivery Me thod Room Air Room Air 12/10/22 07:25 12/10/22 11:00 Temperature 98.5 F 98.8 F Pulse Rate [Left P ulse Oximeter] 97 91 Respiratory Rate 16 18 Blood Pressure [Ri ght Arm] 128/84 135/88 Pulse Oximetry 97 97 Oxygen Delivery Me thod Room Air Room Air Documenting provider has reviewed patient's vital signs: yes Labs Labs: Laboratory Results - last 24 hr 12/10/22 12/10/22 12/10/22 05:47 05:47 05:47 WBC 6.14 RBC 3.53 L Hgb 11.2 L Hct 33.3 MCV 94 MCH 32 MCHC 34 RDW Coeff of Duyen 13.3 Plt Count 179 Neut % (Auto) 62.0 Lymph % (Auto) 24.3 [place] % (Auto) 10.6 Eos % (Auto) 2.6 Baso % (Auto) 0.2 Neut # (Auto) 3.81 Lymph # (Auto) 1.49 [place] # (Auto) 0.70 Eos # (Auto) 0.16 Baso # (Auto) 0.01 Sodium 138 Potassium 3.7 Chloride 110 Carbon Dioxide 25 BUN 9 Creatinine 0.9 Estimated Creat Clear 67.72 Estimated GFR 87 Glucose 94 Lactate 0.5 Calcium 8.0 L Total Bilirubin 0.4 AST 18 ALT 15 Alkaline Phosphatase 53 C-Reactive Protein 17.1 H Total Protein 6.1 Albumin 3.1 L
[2022-12-10] MEDS: ENOXAPARIN 40 MG/0.4 ML INJ SUBCUT (20:37)
[2022-12-10] MEDS: ONDANSETRON ODT 4 MG TAB PO (20:58)
[2022-12-10] MEDS: ACETAMINOPHEN 500 MG TABLET 1000 MG PO (22:48)
[2022-12-11] MEDS: PIPERACILLIN/TAZOBACTAM 3.375 GM in 0.9 % SODIUM CHLORIDE Mini-bag 100 ML IVPB (04:51)
[2022-12-11] MEDS: SODIUM CHLORIDE 0.9 % (FLUSH) 10 ML SYRINGE 5 ML IVF (04:51)
[2022-12-11 04:57] VITALS: BP 131/87; PULSE 82; RESP 16; TEMP 37; O2SAT 97
--- NOTE | 2022-12-11 05:35 | PC.NURSE ---
[id number] Pt rested/slept well during shift. cellulitis to RLE receding from outline, intact blister noted to posterior R lower calf. 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 pain 2-4/10 increases when standing up and ambulating, relief with prn oxy and tylenol. independent in room. nausea x1, relief with prn zofran, no emesis.
[2022-12-11 07:00] LABS: C Reactive Protein* 15.4 mg/dL (0.5-1.0)
[2022-12-11 08:01] VITALS: BP 155/103; PULSE 88; RESP 18; TEMP 37.1; O2SAT 97
[2022-12-11] MEDS: OXYCODONE 5 MG TABLET PO (08:08)
[2022-12-11] MEDS: LACTOBACILLUS ACIDOPHILUS 1 TABLET 2 TAB PO (08:21)
[2022-12-11 09:00] VITALS: O2SAT 97
--- NOTE | 2022-12-11 09:44 | PC.NURSE ---
Pt calm and cooperative during shift. Pt had pain ranging from 0-5 see EMAR for intervention. Pt Independent in room. Pt to be discharging home with .
[2022-12-11 10:45] VITALS: RESP 18; TEMP 37.1
--- NOTE | 2022-12-11 13:28 | P.DS_ITS ---
DS: Providers Provider Time Seen by Provider: 09:00 Date Seen: 12/11/22 Date of admission: 12/08/22 21:19 Primary care physician: Rubina Meneses MD Admitting Clinician: Bertha Mccallum MD Attending Physician on discharge: David Mckeon MD Date of Discharge: 12/11/22 DS: Diagnosis Discharge Diagnosis (1) Cellulitis of right lower leg: Status: Acute Problem details: - RLE; failed outpatient management with doxycycline and Keflex (presented with fever, tachycardia, hypotension) - Zosyn and vancomycin initiated in ED (12/08), will continue these - pain management with Toradol, oxycodone, Tylenol - negative ultrasound for DVT on 12/08 - CT obtained 12/09 with formal radiology read below FINDINGS: Moderately dense edema attenuation in the subcutaneous adipose anterior and medial mid to distal calf. No organized fluid. No muscle inflammation or edema. No cortical nodular abnormality of tibia or fibula. No soft tissue air. Some skin thickening in the anterior medial mid to distal calf. IMPRESSION: No abscess or deep soft tissue infection. Cellulitis - apply Vanicream to the skin of the right lower extremity and then cover with appropriate Tubigrip single layer - she tolerates this well. Recommended that when she is not ambulating that she keep the right lower extremity elevated. (2) Sepsis: Status: Acute Problem details: - tachycardia, hypotension, fever in the setting of cellulitis; all improved on hospital day #1 - blood cultures currently NGTD (3) Obesity: Status: Acute (4) Essential hypertension: Status: Acute Problem details: - on hydrochlorothiazide as an outpatient, holding at this time given hypotension on admission DS: Summary Hospital Course Hospital Course: Stephanie Gagnon is a 32 year old female who presented to the emergency department for worsening right lower extremity cellulitis.? She notes feeling flu-like on Wednesday (2 days prior to presentation), followed by a rash on R choudhury. She was seen at [facility], treated with IV Rocephin, sent home on oral Doxycycline and Keflex. Symptoms continued to worsen, and in the past 24 hours, erythema has continued to spread caudally.? Her right lower extremity has also felt more uncomfortable and tight. She has also had fevers at home (up to 102) with associated chills.? She has had associated nausea, no vomiting or diarrhea.? No sick contacts at home.? No recent travel. ER course and findings: ?- white blood count 8.7, lactate within normal limits, CRP 20 ?- no abnormalities on right lower extremity ultrasound ?- temperature of 100.2, tachycardic on arrival ?- given IV vancomycin and Zosyn Given patient's worsening illness and failure of outpatient antibiotics, she is admitted to the hospital for further management. Stephanie is seen on the floor, she provides her own medical history. Past medical history updated below; patient is generally healthy. PCP is Dr. Rubina Meneses at [facility] in [place]. 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 Lives in [place] with and three children (ages 1, 4, and 7). The pain in her affected right leg, the erythema and swelling, and her temperatures waxed and waned during her short hospital stay. Eventually things started to stabilize and improve. We continued on the IV vancomycin and piperacillin with tazobactam throughout her hospital stay. Blood cultures were negative throughout hospital stay. Did apply Tubigrip to her affected right lower extremity as well as Vanicream to the skin due to evolving dryness of the skin, erythema, and development of confluence erythema in the posterior lower portion of affected right leg at risk for exfoliation. On date of discharge her condition is vastly improved. Follow up as specified below. Status at Discharge Functional status at discharge: independent ambulation Overall status at discharge: patient is progressing back to baseline Time Spent with Patient Time attestation: Total time spent providing and/or coordinating discharge services: Time spent: Greater than 30 minutes Exam Narrative: Exam Narrative: Appears comfortable, no acute distress. Alert and oriented to self, place, time, situation.? Friendly, articulate, cooperative.? Mood and affect are congruent.? Lungs are clear to auscultation.? Heart tones with regular rhythm.? Abdomen is benign.? Left lower extremity benign. Right lower extremity with cellulitis significantly rescinding compared to a prior. The ascending erythema previously seen has seemingly now resolved.? Still has bullae in the dependent right lower extremity, posteriorly, no drainage.? Right calf again measure measures 46 cm in circumference. Right lower calf around site of posterior bullae measures 36 cm. Const: Vital Signs, click to edit/add: Vital Signs - 24 hr 12/10/22 15:00 12/10/22 15:00 12/10/22 15:00 Temperature 98.4 F Pulse Rate [Left P ulse Oximeter] 103 H 103 H Respiratory Rate 18 18 18 Blood Pressure [Ri ght Arm] 137/77 Pulse Oximetry 97 97 Oxygen Delivery Me thod Room Air Room Air 12/10/22 19:00 12/10/22 23:00 12/10/22 23:00 Temperature 99.5 F 98.5 F Pulse Rate [Left P ulse Oximeter] 95 93 Respiratory Rate 16 16 16 Blood Pressure [Ri ght Arm] 130/92 H 129/91 H Pulse Oximetry 97 98 98 Oxygen Delivery Me thod Room Air Room Air Room Air 12/11/22 04:57 12/11/22 09:00 12/11/22 08:01 Temperature 98.6 F Pulse Rate [Left P ulse Oximeter] 82 88 Respiratory Rate 16 Blood Pressure [Ri ght Arm] 131/87 Pulse Oximetry 97 97 Oxygen Delivery Me thod Room Air Room Air 12/11/22 08:01 12/11/22 10:45 Temperature 98.8 F 98.8 F Pulse Rate [Left P ulse Oximeter] 88 Respiratory Rate 18 18 Blood Pressure [Ri ght Arm] 155/103 H Pulse Oximetry 97 Oxygen Delivery Me thod Room Air Documenting provider has reviewed patient's vital signs: yes DS: Data Data Completed and Pending Labs on day of discharge: Labs from last 24 hours 12/11/22 06:00 C-Reactive Protein 15.4 H Preliminary micro results at discharge 12/08/22 17:40 Blood Culture - Preliminary Blood NO GROWTH AFTER 48 HOURS 12/08/22 17:45 Blood Culture - Preliminary Blood NO GROWTH AFTER [address] scan right lower extremity: Attestation: I have reviewed the pertinent imaging results. Radiologist's impression: FINDINGS: Moderately dense edema attenuation in the subcutaneous adipose anterior and medial mid to distal calf. No organized fluid. No muscle inflammation or edema. No cortical nodular abnormality of tibia or fibula. No soft tissue air. Some skin thickening in the anterior medial mid to distal calf. IMPRESSION: No abscess or deep soft tissue infection. Cellulitis. Discharge Plan Discharge Disposition: Home, Self-Care Date of Admission: 12/08/22 21:19 Attending Provider on Discharge: David Mckeon Primary Care Provider: Meneses,Rubina Condition: Improved Anticipated Discharge Date/Time: 12/11/22 10:00 Discharge Medications: New amoxicillin-pot clavulanate 875-125 mg tablet 1 tab PO BID Qty: 14 0RF oxycodone 5 mg Tablet 5 mg PO QID PRN (Reason: Severe Pain) 7 Days Qty: 30 0RF Lactobacillus acidophilus 0.5 mg (100 million cell) Tablet 1 mg PO TIDWM 30 Days Qty: 60 0RF acetaminophen 325 mg tablet 650 mg PO QID 14 Days Qty: 100 0RF Rx Instructions: For 7 days take 4 times daily scheduled, then 4 times daily as needed Continued hydrochlorothiazide 25 mg tablet 25 mg PO DAILY Ozempic 0.25 mg or 0.5 mg(2 mg/1.5 mL) pen injector 0.5 mg SUBCUT QWEEK Label Comments: typically takes on Wednesday albuterol sulfate 90 mcg/actuation HFA aerosol inhaler 2 puff INHALATION Q4H PRN lorazepam 0.5 mg tablet 0.5 mg PO Q8H PRN Label Comments: TAKE 1 TABLET BY MOUTH EVERY 8 HOURS NEEDED FOR ANXIETY PNV cmb#[id number] fumarate-FA [] 28 mg iron- 800 mcg tablet 1 tab PO DAILY biotin 1 mg tablet 1 mg PO DAILY Discontinued cephalexin 500 mg capsule 500 mg PO QID doxycycline hyclate 100 mg capsule 100 mg PO BID Discharge Orders: Discharge Order (Routine); Ordered 12/11/22 Ordered By: David Mckeon Patient Education: Acetaminophen (By mouth), Amoxicillin/Clavulanate Potassium (By mouth) (Augmentin, Augmentin..., Oxycodone, Rapid Release (By mouth), Probiotic (By mouth) (Acidophilus Probiotic Blend, Culturelle,..., Cellulitis (GEN) Additional Instructions: 1. Right leg cellulitis skin care: a. In the morning, gently wash skin with soapy water, rinse, pat dry, then apply thi layer of VANICREAM; b. Apply single layer TUBIGRIP frokm toes to mid-calf, above the area of confluence of the cellulitis - NOTE: should the skin weep fluid, you will need to apply an absorbant dressing over the affected area; c. Keep dressing in place throughout the day and remove at night time. Activity Level: No Restrictions, Activity as Tolerated and Other Activity Detail: Keep right leg elevated when not standing or ambulating for the next 5-10 days Discharge Diet: 2 gm Sodium Follow Up Appointments: Rubina Meneses MD [Primary Care Provider] - (Please schedule follow up appointment in 5-10 days) Forms: [employer] Info Instructions
== END 2022-12-11 10:45 | disposition home or self-care (01) | DRG 872 ==
LOC: ED 19:33 → MEDSURG 21:07
PROVIDERS: Internal Medicine; Admitting Provider Family Medicine; Emergency Provider Family Medicine; PCP Family Medicine; Visit Provider Family Medicine
DX: A41.9 Sepsis, unspecified organism (principal); L03.115 Cellulitis of right lower limb; Z68.41 Body mass index [BMI] 40.0-44.9, adult; I10 Essential (primary) hypertension; E66.9 Obesity, unspecified
CPT/HCPCS: 36415; 73701; 80048; 80053; 83605; 84703; 85025; 86140; 87040; 87502; 87634; 87635; 93971; 99285; A9270; J1650; J1885; J2405; J2543; J3370; J7030; J7050; J7120; Q9967

== ENCOUNTER 2023-10-03 22:15 | Emergency (ER) | payer OTHER, SELFPAY ==
[2023-10-03 22:18] VITALS: BP 197/125; PULSE 79; RESP 16; TEMP 36.3; O2SAT 100
--- NOTE | 2023-10-03 22:53 | ED_ITS ---
HPI - Abdominal Pain General Date Seen: 10/03/23 <Ranjith Modi MD - Last Filed: 10/04/23 13:49> Chief Complaint: Abdominal Pain <Ranjith Modi MD - Last Filed: 10/04/23 13:49> Stated Complaint: abdominal pain <Ranjith Modi MD - Last Filed: 10/04/23 13:49> Time Seen by Provider: 10/03/23 22:23 <Ranjith Modi MD - Last Filed: 10/04/23 13:49> Source: patient <Ranjith Modi MD - Last Filed: 10/04/23 13:49> Mode of arrival: ambulatory <Ranjith Modi MD - Last Filed: 10/04/23 13:49> Limitations: no limitations <Ranjith Modi MD - Last Filed: 10/04/23 13:49> History of Present Illness HPI narrative: Patient is a very nice 33-year-old female presents here with abdominal discomfort. Describes in her epigastric maybe right-sided upper quadrant more. No evidence of vomiting or nausea, seemingly worse after she eats, she describes distension and just a crampy feeling. There is no radiation to her back or anywhere else, she says it has been there for a couple weeks but was improving, would seemingly worsened in the last day. Denies having problems with bowel movements and they been regular. No fevers no chills no coughing wheezing, denies a sore throat runny nose or any other symptoms. Previous abdominal surgeries include x3. Her had a vasectomy, denies a vaginal discharge, dysuria frequency of urination or other issues. <Ranjith Modi MD - Last Filed: 10/04/23 13:49> MD elicited complaint: abdominal pain <Ranjith Modi MD - Last Filed: 10/04/23 13:49> Pertinent past history: none <Ranjith Modi MD - Last Filed: 10/04/23 13:49> Onset (ago): week(s) <Ranjith Modi MD - Last Filed: 10/04/23 13:49> Pain Consistency: intermittent <Ranjith Modi MD - Last Filed: 10/04/23 13:49> Location: epigastric and RUQ <Ranjith Modi MD - Last Filed: 10/04/23 13:49> Severity: moderate <Ranjith Modi MD - Last Filed: 10/04/23 13:49> Radiation: none <Ranjith Modi MD - Last Filed: 10/04/23 13:49> Migration to: no migration <Ranjith Modi MD - Last Filed: 10/04/23 13:49> Exacerbating factors: eating <Ranjith Modi MD - Last Filed: 10/04/23 13:49> Relieving factors: nothing <Ranjith Modi MD - Last Filed: 10/04/23 13:49> Associated symptoms: denies other symptoms <Ranjith Modi MD - Last Filed: 10/04/23 13:49> Related Data Patient : No <Ranjith Modi MD - Last Filed: 10/04/23 13:49> Home Medications: Home Medications Medication Instructions Recorded Confirmed hydrochlorothiazide 25 mg tablet 25 mg PO DAILY 12/08/22 12/08/22 semaglutide 0.25 mg or 0.5 mg (2 0.5 mg subcut QWEEK 12/08/22 12/08/22 mg/1.5 mL) subcutaneous pen injector (Ozempic) albuterol sulfate 90 mcg/actuation 2 puff inhalation Q4H PRN 12/09/22 12/09/22 aerosol inhaler biotin 1 mg tablet 1 mg PO DAILY 12/09/22 12/09/22 lorazepam 0.5 mg tablet 0.5 mg PO Q8H PRN 12/09/22 12/09/22 vit no.95-ferrous 1 tab PO DAILY 12/09/22 12/09/22 fumarate 28 mg-folic acid 800 mcg tablet () Previous Rx's Medication Instructions Recorded Lactobacillus acidophilus 0.5 mg 1 mg (2 x 0.5 mg (100 million 12/11/22 (100 million cell) tablet cell)) PO TIDWM 30 days #60 tabs acetaminophen 325 mg tablet 650 mg (2 x 325 mg) PO QID 14 days 12/11/22 #100 tabs amoxicillin 875 mg-potassium 1 tab PO BID #14 tabs 12/11/22 clavulanate 125 mg tablet oxycodone 5 mg tablet 5 mg PO QID PRN Severe Pain 7 days 12/11/22 #30 tabs <Ranjith Modi MD - Last Filed: 10/04/23 13:49> Allergies/Adverse Reactions: Allergies Allergy/AdvReac Type Severity Reaction Status Date / Time Sulfa (Sulfonamide Allergy Intermediate Rash Verified 12/09/22 11:20 Antibiotics) <Ranjith Modi MD - Last Filed: 10/04/23 13:49> Review of Systems Status of ROS Reports: 10 or more systems reviewed and unremarkable except as noted in History and below <Ranjith Modi MD - Last Filed: 10/04/23 13:49> PFSH PFSH Medical History: Medical History Obesity ?E66.9 - Obesity, unspecified (ICD-10) Essential hypertension ?I10 - Essential (primary) hypertension (ICD-10) <Ranjith Modi MD - Last Filed: 10/04/23 13:49> Surgical History: Surgical History History of ?Z98.891 - History of uterine scar from previous surgery (ICD-10) <Ranjith Modi MD - Last Filed: 10/04/23 13:49> Family History: Family History Father Diabetes Leukemia <Ranjith Modi MD - Last Filed: 10/04/23 13:49> Social History: Social History Narrative: Lives with and 3 children in [place]. 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 Nonsmoker, social wine. Nabil would be medical decision maker if needed. Full code. Highest level of school completed/degree received: Bachelor's degree Smoking Status: Never smoker Do you use any of these nicotine containing products: None Second hand tobacco smoke exposure: No How often do you have a drink containing alcohol: 2-3 times a week Alcohol type: wine How many standard drinks containing alcohol do you have on a typical day: 1 or 2 AUDIT-C Alcohol total score: 3 Non-prescribed substance use: denies use Caffeine: Yes service: No <Ranjith Modi MD - Last Filed: 10/04/23 13:49> Exam Narrative: Exam Narrative: Patient is speaking normally,no problem with slurring words, oriented x3. Head eyes ears nose and throat exam show equal pupils, no scleral icterus, extraocular muscles are normal, no facial droop, speech is normal, trachea normal and midline. Thyroid normal midline palpable not enlarged. Chest shows symmetrical rise bilaterally, normal auscultation with no wheezes, no increased work of breathing, no overt bruising or lesions seen, no tenderness is noted on auscultation. Heart sounds normal with no S3-S4 no murmurs clicks or gallops. Abdomen shows no obvious masses or hepatosplenomegaly, no organomegaly, bowel sounds are normal in all quadrants. There is tenderness in the right upper quadrant epigastric region, bowel sounds are normal. Abdominal exam shows centralized obesity. Ultrasound is used, and I do not see any evidence of any shadowing suggestive of cholelithiasis, her right kidney appears normal, Upper and lower extremities show normal power, normal range of motion, pulses are normal, sensations normal, fine motor movements are normal, pelvis is stable to rocking. Cervical spine shows normal range of motion, and palpably not tender. Thoracic spine shows normal range of motion, and palpably not tender, lumbar spine shows no tenderness to palpation percussion and is otherwise normal range of motion. Skin shows no rashes, petechiae or eccymosis. There notable hypertension, she does have this history, has not been taking her medications as she has been at their old most recent gynecology visit she said she had a normal blood pressure. <Ranjith Modi MD - Last Filed: 10/04/23 13:49> Const: Vital Signs, click to edit/add: Vital Signs - 24 hr 10/03/23 22:18 10/03/23 23:50 10/03/23 23:51 Temperature 97.4 F L Pulse Rate 85 78 Pulse Rate [Left P ulse Oximeter] 79 Respiratory Rate 16 Blood Pressure 148/106 H Blood Pressure [Ri ght Upper Arm] 197/125 H Pulse Oximetry 100 98 97 Oxygen Delivery Me thod Room Air 10/04/23 00:00 10/04/23 00:15 10/04/23 00:34 Temperature Pulse Rate 74 76 81 Pulse Rate [Left P ulse Oximeter] Respiratory Rate Blood Pressure 165/109 H Blood Pressure [Ri ght Upper Arm] Pulse Oximetry 98 98 98 Oxygen Delivery Me thod 10/04/23 00:35 Temperature Pulse Rate 81 Pulse Rate [Left P ulse Oximeter] Respiratory Rate Blood Pressure Blood Pressure [Ri ght Upper Arm] Pulse Oximetry 100 Oxygen Delivery Me thod <Ranjith Modi MD - Last Filed: 10/04/23 13:49> Vital Signs, click to edit/add: Vital Signs - 24 hr 10/03/23 22:18 10/03/23 23:50 10/03/23 23:51 Temperature 97.4 F L Pulse Rate 85 78 Pulse Rate [Left P ulse Oximeter] 79 Respiratory Rate 16 Blood Pressure 148/106 H Blood Pressure [Ri ght Upper Arm] 197/125 H Pulse Oximetry 100 98 97 Oxygen Delivery Me thod Room Air 10/04/23 00:00 10/04/23 00:15 10/04/23 00:34 Temperature Pulse Rate 74 76 81 Pulse Rate [Left P ulse Oximeter] Respiratory Rate Blood Pressure 165/109 H Blood Pressure [Ri ght Upper Arm] Pulse Oximetry 98 98 98 Oxygen Delivery Me thod 10/04/23 00:35 Temperature Pulse Rate 81 Pulse Rate [Left P ulse Oximeter] Respiratory Rate Blood Pressure Blood Pressure [Ri ght Upper Arm] Pulse Oximetry 100 Oxygen Delivery Me thod <Brenda Robbins MD - Last Filed: 10/04/23 02:27> Documenting provider has reviewed patient's vital signs: yes <Ranjith Modi MD - Last Filed: 10/04/23 13:49> Course Reevaluation(s) Time of Reevaluation #1: 02:24 <Brenda Robbins MD - Last Filed: 10/04/23 02:27> Reevaluation #1: Pain improved with Toradol. Patient without additional concerns. CT and lab findings reviewed with patient, likely a mild enteritis, typical course discussed. She declines need for Zofran or prescription Toradol, we discussed proper dosing of Tylenol and ibuprofen as well as alarm symptoms that would warrant ED presentation. She verbalizes understanding and agreement. <Brenda Robbins MD - Last Filed: 10/04/23 02:27> Vital Signs Vital signs: Initial Vital Signs Temperature 97.4 F L 10/03/23 22:18 Temperature Source Temporal Artery Scan 10/03/23 22:18 Pulse Rate 79 10/03/23 22:18 Pulse Rhythm Regular 10/03/23 22:18 Respiratory Rate 16 10/03/23 22:18 Blood Pressure 197/125 H 10/03/23 22:18 Blood Pressure Mean 149 H 10/03/23 22:18 Blood Pressure Position Semi-Fowlers 10/03/23 22:18 Pulse Oximetry 100 10/03/23 22:18 Oxygen Delivery Method Room Air 10/03/23 22:18 Vital Signs Temperature 97.4 F L 10/03/23 22:18 Pulse Rate 79 10/03/23 22:18 Respiratory Rate 16 10/03/23 22:18 Blood Pressure 197/125 H 10/03/23 22:18 Pulse Oximetry 100 10/03/23 22:18 Oxygen Delivery Method Room Air 10/03/23 22:18 Temperature 97.4 F L 10/03/23 22:18 Pulse Rate 81 10/04/23 00:35 Respiratory Rate 16 10/03/23 22:18 Blood Pressure 165/109 H 10/04/23 00:34 Pulse Oximetry 100 10/04/23 00:35 Oxygen Delivery Method Room Air 10/03/23 22:18 <Ranjith Modi MD - Last Filed: 10/04/23 13:49> Initial Vital Signs Temperature 97.4 F L 10/03/23 22:18 Temperature Source Temporal Artery Scan 10/03/23 22:18 Pulse Rate 79 10/03/23 22:18 Pulse Rhythm Regular 10/03/23 22:18 Respiratory Rate 16 10/03/23 22:18 Blood Pressure 197/125 H 10/03/23 22:18 Blood Pressure Mean 149 H 10/03/23 22:18 Blood Pressure Position Semi-Fowlers 10/03/23 22:18 Pulse Oximetry 100 10/03/23 22:18 Oxygen Delivery Method Room Air 10/03/23 22:18 Vital Signs Temperature 97.4 F L 10/03/23 22:18 Pulse Rate 79 10/03/23 22:18 Respiratory Rate 16 10/03/23 22:18 Blood Pressure 197/125 H 10/03/23 22:18 Pulse Oximetry 100 10/03/23 22:18 Oxygen Delivery Method Room Air 10/03/23 22:18 Temperature 97.4 F L 10/03/23 22:18 Pulse Rate 81 10/04/23 00:35 Respiratory Rate 16 10/03/23 22:18 Blood Pressure 165/109 H 10/04/23 00:34 Pulse Oximetry 100 10/04/23 00:35 Oxygen Delivery Method Room Air 10/03/23 22:18 <Brenda Robbins MD - Last Filed: 10/04/23 02:27> Medications Administered Medications: Discontinued Medications Generic Name Dose Route Start Last Admin Trade Name Freq PRN Reason Stop Dose Admin Sodium Chloride 1,000 mls @ 1,000 mls/hr 10/03/23 23:00 10/04/23 00:38 0.9 % Sodium Chloride 1000 Ml IV 10/03/23 23:59 Infused .Q1H DAISY Infusion Ketorolac Tromethamine 10 mg 10/04/23 00:54 10/04/23 01:12 Ketorolac 10 Mg Tablet PO 10/04/23 00:55 10 mg ONCE ONE Administration Ondansetron HCl 4 mg 10/03/23 22:48 10/03/23 23:02 Ondansetron 2 Mg/Ml Inj IVP 10/03/23 22:49 4 mg ONCE ONE Administration <Ranjith Modi MD - Last Filed: 10/04/23 13:49> Discontinued Medications Generic Name Dose Route Start Last Admin Trade Name Freq PRN Reason Stop Dose Admin Sodium Chloride 1,000 mls @ 1,000 mls/hr 10/03/23 23:00 10/04/23 00:38 0.9 % Sodium Chloride 1000 Ml IV 10/03/23 23:59 Infused .Q1H DAISY Infusion Ketorolac Tromethamine 10 mg 10/04/23 00:54 10/04/23 01:12 Ketorolac 10 Mg Tablet PO 10/04/23 00:55 10 mg ONCE ONE Administration Ondansetron HCl 4 mg 10/03/23 22:48 10/03/23 23:02 Ondansetron 2 Mg/Ml Inj IVP 10/03/23 22:49 4 mg ONCE ONE Administration <Brenda Robbins MD - Last Filed: 10/04/23 02:27> MDM - Abdominal Pain MDM Narrative Medical decision making narrative: During the evaluation of this patient I considered multiple differential diagnosis including life-threatening differentials which are appendicitis, aortic aneurysm, mesenteric ischemia, bowel perforation, ectopic , volvulus and bowel obstruction, other differential diagnosis include but are not limited to inflammatory bowel disease, cholecystitis, pancreatitis, hepatitis, gastritis, GERD, diverticulitis, peptic ulcer disease, pyelonephritis/UTI, renal colic/stone, pelvic inflammatory disease, cervicitis, endometritis, intrauterine , dysfunctional uterine bleeding, ovarian cyst/torsion, spontaneous as well as other etiologies <Ranjith Modi MD - Last Filed: 10/04/23 13:49> Lab Data Attestation: I reviewed the patient's lab results. <Brenda Robbins MD - Last Filed: 10/04/23 02:27> Lab results narrative: All reassuring <Brenda Robbins MD - Last Filed: 10/04/23 02:27> Labs: Lab Results 10/03/23 10/03/23 10/04/23 Range/Units 22:28 23:00 01:00 WBC 6.45 (4.50-11.00) K/uL RBC 4.54 (4.00-5.20) m/uL Hgb 14.2 (12.0-16.0) gm/dL Hct 41.8 (33.0-51.0) % MCV 92 (80-100) fL MCH 31 (26-34) pg MCHC 34 (32-36) gm/dL RDW Coeff of Duyen 12.4 (11.5-15.5) % Plt Count 236 (140-440) K/uL Neut % (Auto) 43.3 (42.0-72.0) % Lymph % (Auto) 40.9 (20-44) % Forrest % (Auto) 8.7 (0.0-11.0) % Eos % (Auto) 5.4 (0.0-7.0) % Baso % (Auto) 0.6 (0.0-3.0) % Neut # (Auto) 2.79 (1.7-7.0) K/uL Lymph # (Auto) 2.64 (0.90-2.90) K/uL Forrest # (Auto) 0.60 (0.00-0.90) K/UL Eos # (Auto) 0.35 (0.00-0.50) K/uL Baso # (Auto) 0.04 (0.00-0.30) K/uL Abs Immat Gran (auto) 0.07 (0.00-0.30) K/uL Imm/Tot Granulo (auto) 1.1 % Sodium 137 (135-149) mmol/L Potassium 3.8 (3.6-5.1) mmol/L Chloride 104 (96-114) mmol/L Carbon Dioxide 24 (20-32) mmol/L Anion Gap 9 (7-15) mEq/L BUN 13 (5-24) mg/dL Creatinine 0.7 (0.5-1.5) mg/dL Estimated GFR 117 ml/min Glucose 93 (60-115) mg/dL Lactate 0.8 (0.5-1.9) mmol/L Calcium 9.3 (8.4-10.6) mg/dL Total Bilirubin 0.2 (0.1-1.5) mg/dL Direct Bilirubin 0.0 (0.0-0.5) mg/dL AST 28 (12-35) U/L ALT 25 (4-35) U/L Alkaline Phosphatase 58 (40-150) U/L C-Reactive Protein 1.7 H (0.5-1.0) mg/dL Total Protein 7.3 (6.0-8.3) g/dL Albumin 4.4 (3.3-5.0) g/dL Amylase 70 (18-89) U/L Lipase 187 (23-300) U/L Procalcitonin < 0.03 L (<0.50) ng/mL Urine Color Yellow (Yellow) Urine Appearance Clear (Clear) Urine pH 7.0 (5.0-8.5) Ur Specific [place] 1.010 (1.000-1.030) Urine Protein Negative (Negative) Urine Glucose (UA) Negative (Negative) Urine Ketones Negative (Negative) Urine Blood Negative (Negative) Urine Nitrite Negative (Negative) Urine Bilirubin Negative (Negative) Urine Urobilinogen 0.2 (0.2-1.0) Ur Leukocyte Esterase Negative (Negative) Urine RBC 0-2 (0-2) Urine WBC 0-2 (0-5) Ur Squamous Epith Cells Few (None-Few) Urine Bacteria None (None) Urine HCG, Qual Negative (Negative) SARS-CoV-2 (PCR) Negative SARS-CoV-2 (Negative) Influenza Type A (PCR) Negative PCR FLU A (Negative) Influenza Type B (PCR) Negative PCR FLU B (Negative) RSV (PCR) Negative PCR RSV (Negative) <Ranjith Modi MD - Last Filed: 10/04/23 13:49> Lab Results 10/03/23 10/03/23 10/04/23 Range/Units 22:28 23:00 01:00 WBC 6.45 (4.50-11.00) K/uL RBC 4.54 (4.00-5.20) m/uL Hgb 14.2 (12.0-16.0) gm/dL Hct 41.8 (33.0-51.0) % MCV 92 (80-100) fL MCH 31 (26-34) pg MCHC 34 (32-36) gm/dL RDW Coeff of Duyen 12.4 (11.5-15.5) % Plt Count 236 (140-440) K/uL Neut % (Auto) 43.3 (42.0-72.0) % Lymph % (Auto) 40.9 (20-44) % Forrest % (Auto) 8.7 (0.0-11.0) % Eos % (Auto) 5.4 (0.0-7.0) % Baso % (Auto) 0.6 (0.0-3.0) % Neut # (Auto) 2.79 (1.7-7.0) K/uL Lymph # (Auto) 2.64 (0.90-2.90) K/uL Forrest # (Auto) 0.60 (0.00-0.90) K/UL Eos # (Auto) 0.35 (0.00-0.50) K/uL Baso # (Auto) 0.04 (0.00-0.30) K/uL Abs Immat Gran (auto) 0.07 (0.00-0.30) K/uL Imm/Tot Granulo (auto) 1.1 % Sodium 137 (135-149) mmol/L Potassium 3.8 (3.6-5.1) mmol/L Chloride 104 (96-114) mmol/L Carbon Dioxide 24 (20-32) mmol/L Anion Gap 9 (7-15) mEq/L BUN 13 (5-24) mg/dL Creatinine 0.7 (0.5-1.5) mg/dL Estimated GFR 117 ml/min Glucose 93 (60-115) mg/dL Lactate 0.8 (0.5-1.9) mmol/L Calcium 9.3 (8.4-10.6) mg/dL Total Bilirubin 0.2 (0.1-1.5) mg/dL Direct Bilirubin 0.0 (0.0-0.5) mg/dL AST 28 (12-35) U/L ALT 25 (4-35) U/L Alkaline Phosphatase 58 (40-150) U/L C-Reactive Protein 1.7 H (0.5-1.0) mg/dL Total Protein 7.3 (6.0-8.3) g/dL Albumin 4.4 (3.3-5.0) g/dL Amylase 70 (18-89) U/L Lipase 187 (23-300) U/L Procalcitonin < 0.03 L (<0.50) ng/mL Urine Color Yellow (Yellow) Urine Appearance Clear (Clear) Urine pH 7.0 (5.0-8.5) Ur Specific [place] 1.010 (1.000-1.030) Urine Protein Negative (Negative) Urine Glucose (UA) Negative (Negative) Urine Ketones Negative (Negative) Urine Blood Negative (Negative) Urine Nitrite Negative (Negative) Urine Bilirubin Negative (Negative) Urine Urobilinogen 0.2 (0.2-1.0) Ur Leukocyte Esterase Negative (Negative) Urine RBC 0-2 (0-2) Urine WBC 0-2 (0-5) Ur Squamous Epith Cells Few (None-Few) Urine Bacteria None (None) Urine HCG, Qual Negative (Negative) SARS-CoV-2 (PCR) Negative SARS-CoV-2 (Negative) Influenza Type A (PCR) Negative PCR FLU A (Negative) Influenza Type B (PCR) Negative PCR FLU B (Negative) RSV (PCR) Negative PCR RSV (Negative) <Brenda Robbins MD - Last Filed: 10/04/23 02:27> Imaging Data CT scan - pelvis: Attestation: I have reviewed the pertinent imaging results. <Brenda Robbins MD - Last Filed: 10/04/23 02:27> My impression: Normal. No appendicitis, obstruction, mass or other pertinent findings <Brenda Robbins MD - Last Filed: 10/04/23 02:27> Radiologist's impression: IMPRESSION: 1. Findings suggestive of a nonspecific enteritis. No definite obstruction. 2. Multiple mildly prominent mesenteric lymph nodes are likely reactive. 3. No other acute findings in the abdomen or pelvis. <Brenda Robbins MD - Last Filed: 10/04/23 02:27> Discharge Plan Discharge Clinical Impression: Enteritis <Ranjith Modi MD - Last Filed: 10/04/23 13:49> Patient Disposition: Home, Self-Care <Ranjith Modi MD - Last Filed: 10/04/23 13:49> Condition: Improved <Ranjith Modi MD - Last Filed: 10/04/23 13:49> Instructions: Enteritis (ED) <Ranjith Modi MD - Last Filed: 10/04/23 13:49> Additional Instructions: Discussed, your pain seems to be from enteritis or more commonly known as the stomach flu. This tends to cause nausea and cramping and can cause diarrhea as well. For pain, you may use Tylenol 1000 mg every 6 hours as needed and or ibuprofen 600 mg every 6 hours as needed. Drink lots of fluids. There can be some mild nausea, you have severe vomiting that lasts for more than 48 hours, you should seek re-evaluation. There are rarely complications from this but if her pain becomes very severe, you start having signs of dehydration, especially with fever, please return to the emergency department. <Ranjith Modi MD - Last Filed: 10/04/23 13:49> Activity Level: No Restrictions <Ranjith Modi MD - Last Filed: 10/04/23 13:49> No Restrictions <Brenda Robbins MD - Last Filed: 10/04/23 02:27> Discharge Diet: Regular <Ranjith Modi MD - Last Filed: 10/04/23 13:49> Regular <Brenda Robbins MD - Last Filed: 10/04/23 02:27> Prescriptions: No Action hydrochlorothiazide 25 mg tablet 25 mg PO DAILY Ozempic 0.25 mg or 0.5 mg(2 mg/1.5 mL) pen injector 0.5 mg SUBCUT QWEEK Patient Comments: typically takes on Wednesday albuterol sulfate 90 mcg/actuation HFA aerosol inhaler 2 puff INHALATION Q4H PRN lorazepam 0.5 mg tablet 0.5 mg PO Q8H PRN Patient Comments: TAKE 1 TABLET BY MOUTH EVERY 8 HOURS NEEDED FOR ANXIETY PNV cmb#[id number]-ferrous fumarate-FA [] 28 mg iron- 800 mcg tablet 1 tab PO DAILY biotin 1 mg tablet 1 mg PO DAILY amoxicillin-pot clavulanate 875-125 mg tablet 1 tab PO BID Qty: 14 0RF oxycodone 5 mg Tablet 5 mg PO QID PRN (Reason: Severe Pain) 7 Days Qty: 30 0RF Lactobacillus acidophilus 0.5 mg (100 million cell) Tablet 1 mg PO TIDWM 30 Days Qty: 60 0RF acetaminophen 325 mg tablet 650 mg PO QID 14 Days Qty: 100 0RF Rx Instructions: For 7 days take 4 times daily scheduled, then 4 times daily as needed <Ranjith Modi MD - Last Filed: 10/04/23 13:49> Follow Up/Referrals: Rubina Meneses MD [Primary Care Provider] - <Ranjith Modi MD - Last Filed: 10/04/23 13:49> Stand Alone Forms: [facility] Info Instructions <Ranjith Modi MD - Last Filed: 10/04/23 13:49>
[2023-10-03 22:59] LABS: Albumin* 4.4 g/dL (3.3-5.0); Chloride* 104 mmol/L (96-114)
[2023-10-03 23:00] LABS: Potassium* 3.8 mmol/L (3.6-5.1); Sodium* 137 mmol/L (135-149)
[2023-10-03 23:01] LABS: Lactate* 0.8 mmol/L (0.5-1.9)
[2023-10-03 23:02] LABS: Amylase* 70 U/L (18-89); Anion Gap 9 mEq/L (7-15); Carbon Dioxide* 24 mmol/L (20-32); Creatinine* 0.7 mg/dL (0.5-1.5); Estimated Glomerular Filt Rate 117 ml/min
[2023-10-03] MEDS: ONDANSETRON 2 MG/ML inj 4 MG IVP (23:02)
[2023-10-03] MEDS: 0.9 % SODIUM CHLORIDE 1000 ml 1,000 ML IV (23:02)
[2023-10-03 23:03] LABS: Alanine Aminotransferase* 25 U/L (4-35); Alkaline Phosphatase* 58 U/L (40-150); Aspartate Amino Transferase* 28 U/L (12-35); Bilirubin Total* 0.2 mg/dL (0.1-1.5); Blood Urea Nitrogen* 13 mg/dL (5-24); Calcium* 9.3 mg/dL (8.4-10.6); Glucose* 93 mg/dL (60-115); Lipase* 187 U/L (23-300); Total Protein* 7.3 g/dL (6.0-8.3)
[2023-10-03 23:05] LABS: C Reactive Protein* 1.7 mg/dL (0.5-1.0)
[2023-10-03 23:33] LABS: Procalcitonin* < 0.03 ng/mL (<0.50)
[2023-10-03 23:40] LABS: PCR FLU A Negative PCR FLU A (Negative); PCR FLU B Negative PCR FLU B (Negative); PCR RSV Negative PCR RSV (Negative)
[2023-10-03 23:42] LABS: Basophils Absolute Auto 0.04 K/uL (0.00-0.30); Basophils Percent Auto 0.6 % (0.0-3.0); Eosinophils Absolute Auto 0.35 K/uL (0.00-0.50); Eosinophils Percent Auto 5.4 % (0.0-7.0); Hematocrit 41.8 % (33.0-51.0); Hemoglobin* 14.2 gm/dL (12.0-16.0); Immature Granulocytes Abs Auto 0.07 K/uL (0.00-0.30); Immature Granulocytes Pct Auto 1.1 %; Lymphocytes Absolute Auto 2.64 K/uL (0.90-2.90); Lymphocytes Percent Auto 40.9 % (20-44); Mean Corpuscular HGB Conc 34 gm/dL (32-36); Mean Corpuscular Hemoglobin 31 pg (26-34); Mean Corpuscular Volume 92 fL (80-100); Monocytes Percent Auto 8.7 % (0.0-11.0); Neutrophils Absolute Auto 2.79 K/uL (1.7-7.0); Neutrophils Percent Auto 43.3 % (42.0-72.0); Platelet Count* 236 K/uL (140-440); RDW Coefficient of Variation % 12.4 % (11.5-15.5); Red Blood Count 4.54 m/uL (4.00-5.20); White Blood Count* 6.45 K/uL (4.50-11.00)
[2023-10-03 23:44] LABS: Slide Review Reflex No
[2023-10-03 23:45] LABS: SARS PCR* Negative SARS-CoV-2 (Negative)
[2023-10-03 23:50] VITALS: PULSE 85; O2SAT 98
[2023-10-03 23:51] VITALS: BP 148/106; PULSE 78; O2SAT 97
--- NOTE | 2023-10-03 23:52 | CRLHL7_ITS ---
For Patients: As a result of the Century Cures Act, medical imaging exams and procedure reports are released immediately into your electronic medical record. You may view this report before your referring provider. If you have questions, please contact your health care provider. INDICATION: Epigastric abdominal pain. TECHNIQUE: CT of the abdomen and pelvis with 97 cc Isovue 370 IV contrast. Coronal and sagittal reconstructions. COMPARISON: None. FINDINGS: The liver, gallbladder, spleen, pancreas, and adrenal glands are negative. No biliary dilation. Hepatic and portal veins are patent. Symmetric enhancement of the kidneys. No hydronephrosis or ureteral dilation. No obstructing urinary calculi identified. No bladder wall thickening. Uterus is unremarkable. Small follicle right ovary. There are scattered fluid-filled loops of small bowel in the left abdomen, with interspersed decompressed loops demonstrating mild wall thickening. No discrete transition point. Findings suggest a nonspecific enteritis. Moderate amount of stool throughout the colon. Negative appendix. No intraperitoneal free air or fluid. Moderate sized fat containing periumbilical ventral hernia. Multiple mildly prominent mesenteric lymph nodes are likely reactive. No lymphadenopathy by size criteria. The bones are unremarkable. The lung bases are clear. IMPRESSION: 1. Findings suggestive of a nonspecific enteritis. No definite obstruction. 2. Multiple mildly prominent mesenteric lymph nodes are likely reactive. 3. No other acute findings in the abdomen or pelvis. Please note that all CT scans at this facility use dose modulation, iterative reconstruction, and/or weight-based dosing when appropriate to reduce radiation dose to as low as reasonably achievable. Dictated by Connie Osorio MD @ 10/04/2023 2:15:16 AM (Electronically Signed)
[2023-10-04] VITALS: PULSE 74; O2SAT 98
[2023-10-04 00:15] VITALS: PULSE 76; O2SAT 98
[2023-10-04 00:34] VITALS: BP 165/109; PULSE 81; O2SAT 98
[2023-10-04 00:35] VITALS: PULSE 81; O2SAT 100
[2023-10-04 00:58] LABS: Appearance Urine Clear (Clear); Bilirubin Urine Negative (Negative); Blood Urine Negative (Negative); Color Urine Yellow (Yellow); Glucose Urine Negative (Negative); Ketones Urine Negative (Negative); Leukocyte Esterase Urine Negative (Negative); Nitrite Urine Negative (Negative); Protein Urine Negative (Negative); Urobilinogen Urine 0.2 (0.2-1.0)
[2023-10-04] MEDS: KETOROLAC 10 MG TABLET PO (01:12)
[2023-10-04 01:17] LABS: RBC Urine 0-2 (0-2); Squamous Epithelial Cell Urine Few (None-Few); Ur HCG Qualitative* Negative (Negative); WBC Urine 0-2 (0-5)
== END 2023-10-04 02:36 | disposition home or self-care (01) ==
PROVIDERS: Emergency Provider Family Medicine; PCP Family Medicine
DX: K52.9 Noninfective gastroenteritis and colitis, unspecified (principal)
CPT/HCPCS: 36415; 74177; 80048; 80076; 81001; 81025; 82150; 83605; 83690; 84145; 85025; 86140; 87631; 96374; 99283; 99284; A9270; J2405; J7030; Q9967